=== PATIENT | female | born 1985 | race African-American/Black ===

== ENCOUNTER 2017-02-02 05:45 | Emergency (ER) | payer OTHER ==
[~2017-02-02] VITALS: Ht 175.3 cm; Wt 67.1 kg
[~2017-02-02 05:45] MED LIST: IBUPROFEN 600600 M1 PO; KEFLEX500 MG PO
[2017-02-02 05:46] VITALS: BP 148/86
== END 2017-02-02 08:15 | disposition home or self-care (01) ==
LOC: ER 05:45
DX: R60.0 Localized edema (principal); F17.210 Nicotine dependence, cigarettes, uncomplicated